=== PATIENT | male | born 1950 | race Caucasian/White ===

== ENCOUNTER 2018-08-31 12:06 | Day surgery (SDC) | payer MEDICARE, BC ==
[2018-08-31] VITALS (10 sets, daily range): BP systolic 104–132; BP diastolic 56–79
[~2018-08-31] VITALS: Ht 172.7 cm; Wt 50.5 kg
[2018-08-31] MEDS ORDERED: diphenhydrAMINE 25mg capsule PO PRN (12:40)
[2018-08-31] MEDS ORDERED: normal saline 1,000 ML IV SCH (12:40)
[2018-08-31 13:18] LABS: BASOPHILS % (AUTO) 0.8 % (0-1); EOSINOPHILS # (AUTO) 0.2 X10'3 (0-0.9); EOSINOPHILS % (AUTO) 5.3 % (0-6); HEMATOCRIT 39.1 % (42.0-52.0); HEMOGLOBIN 13.3 g/dl (14.0-17.9); LYMPHOCYTES # (AUTO) 1.6 X10'3 (1.1-4.8); LYMPHOCYTES % (AUTO) 35.4 % (21-51); MEAN CORPUSCULAR HEMOGLOBIN 32.1 PG (27.0-31.0); MEAN CORPUSCULAR HGB CONC 33.9 g/dL (33.0-36.5); MEAN CORPUSCULAR VOLUME 94.6 FL (78-98); MEAN PLATELET VOLUME 8.4 FL (7.4-10.4); MONOCYTES # (AUTO) 0.4 X10'3 (0-0.9); MONOCYTES % (AUTO) 9.4 % (2-12); NEUTROPHILS # (AUTO) 2.2 X10'3 (1.8-7.7); NEUTROPHILS % (AUTO) 49.1 % (42-75); PLATELET COUNT 198 X10'3 (140-440); RED BLOOD COUNT 4.14 X10'6 (4.70-6.10); RED CELL DISTRIBUTION WIDTH 13.7 % (11.5-14.5); WHITE BLOOD COUNT 4.4 X10'3 (4.5-11.0)
[2018-08-31 13:25] LABS: ALBUMIN 3.6 G/DL (3.4-5.0); ANION GAP 0 (8-16); BLOOD UREA NITROGEN 12 MG/DL (7-18); CALCIUM 8.8 MG/DL (8.5-10.1); CHLORIDE 102 MMOL/L (99-107); CREATININE 0.92 MG/DL (0.60-1.10); GLUCOSE 88 MG/DL (70-104); MAGNESIUM 2.3 MG/DL (1.5-2.4); POTASSIUM 4.2 MMOL/L (3.5-5.1); SODIUM 138 MMOL/L (135-145); TOTAL CARBON DIOXIDE 36.1 MMOL/L (24-32); eGFR 82 ML/MIN
[2018-08-31] MEDS ORDERED: iohexol 350MG/ML 100ml bottle IV ONE ×2 (13:25→14:23)
[2018-08-31] MEDS ORDERED: LIDOcaine 1% (10mg/ml)w/preservative injection 20ml MDV ONE (13:25)
[2018-08-31] MEDS ORDERED: midazolam 2 mg/2 ml injection ONE ×2 (13:25→13:57)
[2018-08-31] MEDS ORDERED: fentaNYL/PF 50MCG/1 ML 2ML syringe ONE (13:25)
[2018-08-31] MEDS ORDERED: iohexol 350 MG/ML 50ML vial IV ONE ×2 (13:25→13:26)
[2018-08-31] MEDS ORDERED: FLO0.4C PO (13:42)
[2018-08-31] MEDS ORDERED: TRAZ-251 PO (13:50)
[2018-08-31] MEDS ORDERED: ESOM40CA49 PO (13:51)
[2018-08-31] MEDS ORDERED: FLUT1DIS INH (13:52)
[2018-08-31] MEDS ORDERED: IPRA4AER IH (13:54)
[2018-08-31] MEDS ORDERED: OXYC40TA48 PO (13:55)
[2018-08-31] MEDS ORDERED: HYDR-4353 PO (13:56)
[2018-08-31] MEDS ORDERED: ATOR20TA PO (13:57)
[2018-08-31] MEDS ORDERED: ISOS30TA6 PO (14:00)
[2018-08-31] MEDS ORDERED: CARV3.122 PO (14:01)
[2018-08-31] MEDS ORDERED: ketorolac tromethamine 15mg/ml inj. IV ONE (15:35)
[2018-08-31] MEDS ORDERED: HYDROcodone/acetaminophen 10/325mg tab PO PRN (15:40)
[2018-08-31] MEDS ORDERED: OXAZEpam 15mg capsule PO ONE (17:35)
== END 2018-08-31 18:30 | disposition home or self-care (01) ==
LOC: SSTAY O 12:06
PROVIDERS: ATTEND Internal Medicine Cardiovascular Disease
DX: I25.119 Atherosclerotic heart disease of native coronary artery with unspecified angina pectoris (principal); I25.82 Chronic total occlusion of coronary artery; I25.2 Old myocardial infarction; J44.9 Chronic obstructive pulmonary disease, unspecified; F17.210 Nicotine dependence, cigarettes, uncomplicated; Z95.1 Presence of aortocoronary bypass graft; Z95.5 Presence of coronary angioplasty implant and graft; Z79.82 Long term (current) use of aspirin; Z79.899 Other long term (current) drug therapy; Z98.890 Other specified postprocedural states
CPT/HCPCS: 36415; 80048; 83735; 85025; 85610; 93459; 99152; 99153; A6257; C1769; C1894; J1644; J1885; J2001; J2250; J3010; J7030; Q9967; A4620

== ENCOUNTER 2023-08-29 18:33 | Emergency (ER) | payer MEDICARE, BC ==
[~2023-08-29] VITALS: Ht 172.7 cm; Wt 75.0 kg
[~2023-08-29 18:33] MED LIST: ATOR20TA PO; CARV3.122 PO; ESOM40CA49 PO; FLO0.4C PO; FLUT1DIS INH; HYDR-4353 PO; IPRA4AER IH; ISOS30TA84 PO; OXYC40TA48 PO; TRAZ-251 PO
[2023-08-29] MEDS: bacitracin 15gm ointment TP ONE (23:53)
[2023-08-30 00:05] VITALS: BP 127/74; PULSE 86; RESP 16; TEMP 97.8; O2SAT 97
== END 2023-08-30 00:09 | disposition home or self-care (01) ==
LOC: ER 18:34
DX: S60.222A Contusion of left hand, initial encounter (principal); X58.XXXA Exposure to other specified factors, initial encounter; Y93.89 Activity, other specified; Y92.89 Other specified places as the place of occurrence of the external cause; Y99.8 Other external cause status
CPT/HCPCS: 99283; A6449